=== PATIENT | female | born 1975 | race Caucasian/White ===

== ENCOUNTER 2021-08-11 19:44 | Emergency (ER) | payer OTHER ==
[2021-08-11 19:53] VITALS: TEMP 98
[2021-08-11] MEDS ORDERED: SODIUM CHLORIDE 0.9% 500 ML 500 ML IV STA (19:54)
--- NOTE | 2021-08-11 20:01 | ED ---
URI HPI - General Source: patient, RN notes reviewed, old records reviewed Mode of arrival: ambulatory Limitations: no limitations - History of Present Illness MD Complaint: cough, other (Shortness of breath) -: days(s) (10) Consistency: constant Improves With: nothing Associated Symptoms: rhinorrhea, cough, shortness of breath, other (Tachycardia) <Iam Lin - Last Filed: 08/11/21 23:13> - General Source: patient, RN notes reviewed, old records reviewed Mode of arrival: ambulatory Limitations: no limitations - History of Present Illness MD Complaint: cough, other -: days(s) Consistency: constant Improves With: nothing Associated Symptoms: rhinorrhea, cough, shortness of breath, other <Lisa Sandoval - Last Filed: 08/12/21 03:54> - General Chief Complaint: Upper Respiratory Infection Stated Complaint: Pneumonia Time Seen by Provider: 08/11/21 19:52 - History of Present Illness Initial Comments: This is a well-appearing 46-year-old female, evaluated in triage, who presents to the emergency room in no respiratory distress with complaints of 10 days of runny nose, cough and shortness of breath She was at urgent care and they recommended she come to the emergency room for elevated heart rate and oxygen sa turation 93%. She did take coronavirus test that was negative. She has been vaccinated. (Iam Lin) Patient evaluated in the examination room and noted to have difficulty catching her breath. She is also noted to have difficulty controlling her cough. States that sleeping has been very difficult, as whenever she tries to lay down she begins to cough. Denies any fevers, chills, sore throat, palpitations, abdominal pain, nausea, vomiting, diarrhea, back pain, or headaches. (Lisa Sandoval) - Related Data Previous Rx's Medication Instructions Recorded Albuterol Sulfate [Albuterol 1 puff PO Q4-6H #8.5 gm 08/12/21 Sulfate Hfa] Benzonatate [Tessalon Perles] 100 mg PO TID PRN #20 capsule 08/12/21 Codeine Phosphate/Guaifenesin 5 ml PO Q6H 3 Days #60 ml 08/12/21 [Codeine Phosphate/Guaifenesin 10-100 mg/5 ml] Doxycycline [Vibramycin] 100 mg PO BID 5 Days #10 capsule 08/12/21 Allergies Allergy/AdvReac Type Severity Reaction Status Date / Time No Known Allergies Allergy Verified 08/11/21 19:51 Review of Systems ROS Other: All systems not noted in ROS Statement are negative. <Iam Lin - Last Filed: 08/11/21 23:13> ROS Other: All systems not noted in ROS Statement are negative. <Lisa Sandoval - Last Filed: 08/12/21 03:54> ROS Statement: Those systems with pertinent positive or pertinent negative responses have been documented in the HPI. Past Medical History Past Medical History: No Reported History History of Any Multi-Drug Resistant Organisms: None Reported Past Surgical History: Cholecystectomy, Orthopedic Surgery Past Psychological History: No Psychological Hx Reported Smoking Status: Never smoker Past Alcohol Use History: None Reported Past Drug Use History: None Reported <Iam Lin - Last Filed: 08/11/21 23:13> General Exam Limitations: no limitations General appearance: alert Head exam: Present: atraumatic Neck exam: Absent: tenderness, meningismus Respiratory exam: Absent: respiratory distress, accessory muscle use Cardiovascular Exam: Present: tachycardia Neurological exam: Present: alert, oriented X3, normal gait Psychiatric exam: Present: normal affect, normal mood Skin exam: Present: normal color. Absent: cyanosis, diaphoretic <aIm Lin - Last Filed: 08/11/21 23:13> Limitations: no limitations General appearance: alert Head exam: Present: atraumatic Neck exam: Present: normal inspection. Absent: tenderness, meningismus, lymphadenopathy Respiratory exam: Present: rhonchi (In all four lobes, improved with coughing.). Absent: respiratory distress, wheezes, rales, stridor, accessory muscle use Cardiovascular Exam: Present: normal rhythm, tachycardia, normal heart sounds. Absent: systolic murmur, diastolic murmur, rubs, gallop, clicks Neurological exam: Present: alert, oriented X3, CN II-XII intact Psychiatric exam: Present: normal affect, normal mood Skin exam: Present: warm, dry, intact, normal color. Absent: rash <Lisa Sandoval - Last Filed: 08/12/21 03:54> Course Vital Signs 08/11/21 08/12/21 08/12/21 19:51 01:52 03:12 Temperature 98.0 F Pulse Rate 121 H 105 H 105 H Respiratory 22 20 18 Rate Blood Pressure 133/79 105/73 119/79 O2 Sat by Pulse 98 98 98 Oximetry Medical Decision Making - EKG Data Rate: tachycardia (Sinus tachycardia 114, LA interval 0.120, QRS 0.75, QTC 0.375 normal axis) <eddiIam - Last Filed: 08/11/21 23:13> - Lab Data Result diagrams: 08/12/21 01:38 08/12/21 01:38 - EKG Data Rate: tachycardia - Radiology Data Radiology results: report reviewed, image reviewed <Lisa Sandoval - Last Filed: 08/12/21 03:54> - Medical Decision Making This is a 46-year-old female who presents to the emergency department for cough, congestion, and shortness of breath. Lab work, EKG, and chest x-ray revealed no acute findings. Given that symptoms have been present for 10 days at this point, will treat her with a course of antibiotics. Rx for doxycycline sent to the pharmacy. Initial dose given in the emergency department, as pharmacies are currently closed. Because the patient is unable to sleep due to the coughing, codeine with guanfacine cough syrup sent to the pharmacy. Instructed her to only use at night as it is sedating. Again, because the pharmacies are closed, starter pack for Tylenol #3 provided. Given that it has codeine, it will help suppress the cough. Rx for Tessalon Perles and albuterol inhaler prescribed as well. Return precautions reviewed in depth, the patient is instructed to return to the emergency department with any new, worsening, or concerning symptoms. Patient verbalized understanding. This case was discussed in detail with the attending ED physician. Presentation, findings, and treatment plan discussed in detail as well. (Lisa Sandoval) - Lab Data Lab Results 08/12/21 08/12/21 08/12/21 Range/Units 01:38 01:38 01:38 WBC 11.9 H (3.8-10.6) k/uL RBC 4.35 (3.80-5.40) m/uL Hgb 13.2 (11.4-16.0) gm/dL Hct 38.9 (34.0-46.0) % MCV 89.4 (80.0-100.0) fL MCH 30.3 (25.0-35.0) pg MCHC 33.9 (31.0-37.0) g/dL RDW 12.8 (11.5-15.5) % Plt Count 157 (150-450) k/uL MPV 7.9 Neutrophils % 82 % Lymphocytes % 8 % Monocytes % 5 % Eosinophils % 3 % Basophils % 1 % Neutrophils # 9.8 H (1.3-7.7) k/uL Lymphocytes # 1.0 (1.0-4.8) k/uL Monocytes # 0.5 (0-1.0) k/uL Eosinophils # 0.4 (0-0.7) k/uL Basophils # 0.1 (0-0.2) k/uL PT 10.7 (9.0-12.0) sec INR 1.0 (<1.2) APTT 26.4 (22.0-30.0) sec D-Dimer 0.42 (<0.60) mg/L FEU Sodium 136 L (137-145) mmol/L Potassium 3.2 L (3.5-5.1) mmol/L Chloride 107 (98-107) mmol/L Carbon Dioxide 22 (22-30) mmol/L Anion Gap 7 mmol/L BUN 3 L (7-17) mg/dL Creatinine 0.60 (0.52-1.04) mg/dL Est GFR (CKD-EPI)AfAm >90 (>60 ml/min/1.73 sqM) Est GFR (CKD-EPI)NonAf >90 (>60 ml/min/1.73 sqM) Glucose 107 H (74-99) mg/dL Plasma Lactic Acid Paoc (0.7-2.0) mmol/L Calcium 8.7 (8.4-10.2) mg/dL Magnesium 1.7 (1.6-2.3) mg/dL Total Bilirubin 0.8 (0.2-1.3) mg/dL AST 23 (14-36) U/L ALT 16 (4-34) U/L Alkaline Phosphatase 108 (38-126) U/L Troponin I (0.000-0.034) ng/mL Total Protein 6.6 (6.3-8.2) g/dL Albumin 3.9 (3.5-5.0) g/dL 08/12/21 08/12/21 Range/Units 01:38 01:38 WBC (3.8-10.6) k/uL RBC (3.80-5.40) m/uL Hgb (11.4-16.0) gm/dL Hct (34.0-46.0) % MCV (80.0-100.0) fL MCH (25.0-35.0) pg MCHC (31.0-37.0) g/dL RDW (11.5-15.5) % Plt Count (150-450) k/uL MPV Neutrophils % % Lymphocytes % % Monocytes % % Eosinophils % % Basophils % % Neutrophils # (1.3-7.7) k/uL Lymphocytes # (1.0-4.8) k/uL Monocytes # (0-1.0) k/uL Eosinophils # (0-0.7) k/uL Basophils # (0-0.2) k/uL PT (9.0-12.0) sec INR (<1.2) APTT (22.0-30.0) sec D-Dimer (<0.60) mg/L FEU Sodium (137-145) mmol/L Potassium (3.5-5.1) mmol/L Chloride (98-107) mmol/L Carbon Dioxide (22-30) mmol/L Anion Gap mmol/L BUN (7-17) mg/dL Creatinine (0.52-1.04) mg/dL Est GFR (CKD-EPI)AfAm (>60 ml/min/1.73 sqM) Est GFR (CKD-EPI)NonAf (>60 ml/min/1.73 sqM) Glucose (74-99) mg/dL Plasma Lactic Acid Paco 1.2 (0.7-2.0) mmol/L Calcium (8.4-10.2) mg/dL Magnesium (1.6-2.3) mg/dL Total Bilirubin (0.2-1.3) mg/dL AST (14-36) U/L ALT (4-34) U/L Alkaline Phosphatase (38-126) U/L Troponin I <0.012 (0.000-0.034) ng/mL Total Protein (6.3-8.2) g/dL Albumin (3.5-5.0) g/dL Disposition <eddiIam - Last Filed: 08/11/21 23:13> Is patient prescribed a controlled substance at d/c from ED?: Yes When asked, does pt state using other controlled substances?: No If prescribed controlled substance>3 days was MAPS reviewed?: Prescribed <3 Days <Lisa Sandoval - Last Filed: 08/12/21 03:54> Clinical Impression: Bronchitis Disposition: HOME SELF-CARE Instructions (If sedation given, give patient instructions): Acute Bronchitis (ED) Additional Instructions: Return to the emergency department with any new, worsening, or concerning symptoms. Use the cough syrup at night until you know how it affects you, as it may be sedating. Take the antibiotic as prescribed for 5 days. Use the inhaler as needed for shortness of breath. Prescriptions: Albuterol Sulfate [Albuterol Sulfate Hfa] 1 puff PO Q4-6H #8.5 gm Codeine Phosphate/Guaifenesin [Codeine Phosphate/Guaifenesin 10-100 mg/5 ml] 5 ml PO Q6H 3 Days #60 ml Benzonatate [Tessalon Perles] 100 mg PO TID PRN #20 capsule PRN Reason: Cough Doxycycline [Vibramycin] 100 mg PO BID 5 Days #10 capsule Referrals: None,Stated [Primary Care Provider] - 1-2 days
--- NOTE | 2021-08-11 20:35 | XR ---
EXAMINATION TYPE: XR chest 2V DATE OF EXAM: 08/11/2021 COMPARISON: NONE HISTORY: Short of breath TECHNIQUE: 2 view FINDINGS: Heart is normal. Lungs are clear. Diaphragm is normal. Bony thorax is intact. IMPRESSION: Normal chest.
[2021-08-12 01:55] VITALS: PULSE 105
[2021-08-12 01:57] LABS: Basophils # (A) 0.1 k/uL (0-0.2); Basophils % (A) 1 %; Eosinophils # (A) 0.4 k/uL (0-0.7); Eosinophils % (A) 3 %; HCT 38.9 % (34.0-46.0); HGB 13.2 gm/dL (11.4-16.0); Lymphocytes % (A) 8 %; MCH 30.3 pg (25.0-35.0); MCHC 33.9 g/dL (31.0-37.0); MCV 89.4 fL (80.0-100.0); Mean Platelet Volume 7.9; Monocytes # (A) 0.5 k/uL (0-1.0); Monocytes % (A) 5 %; Neutrophils # (A) 9.8 k/uL (1.3-7.7); Neutrophils % (A) 82 %; Platelet Count 157 k/uL (150-450); RBC 4.35 m/uL (3.80-5.40); RDW 12.8 % (11.5-15.5); WBC 11.9 k/uL (3.8-10.6)
[2021-08-12 02:15] LABS: ALT 16 U/L (4-34); AST 23 U/L (14-36); African American GFR (CKD) >90 (>60 ml/min/1.73 sqM); Albumin 3.9 g/dL (3.5-5.0); Alkaline Phosphatase 108 U/L (38-126); Anion Gap 7 mmol/L; Blood Urea Nitrogen 3 mg/dL (7-17); Calcium 8.7 mg/dL (8.4-10.2); Carbon Dioxide 22 mmol/L (22-30); Chloride 107 mmol/L (98-107); Glucose 107 mg/dL (74-99); Magnesium 1.7 mg/dL (1.6-2.3); Non-African American GFR(CKD) >90 (>60 ml/min/1.73 sqM); Potassium 3.2 mmol/L (3.5-5.1); Sodium 136 mmol/L (137-145); Total Bilirubin 0.8 mg/dL (0.2-1.3); Total Protein 6.6 g/dL (6.3-8.2)
[2021-08-12 02:23] LABS: Partial Thromboplastin Time 26.4 sec (22.0-30.0); Prothrombin Time 10.7 sec (9.0-12.0)
[2021-08-12] MEDS ORDERED: ACET/COD 300 MG/30 MG STARTER PACK 6 TAB BTL PO STA (02:35)
[2021-08-12] MEDS ORDERED: BENZONATATE 100 MG CAP PO STA (02:36)
[2021-08-12] MEDS ORDERED: DOXYCYCLINE 100 MG CAP PO STA (02:44)
[2021-08-12 03:13] VITALS: BP 119/79; RESP 18
== END 2021-08-12 03:13 | disposition home or self-care (01) ==
LOC: EC 19:44
DX: J20.9 Acute bronchitis, unspecified (principal)
CPT/HCPCS: 36415; 71046; 80053; 83605; 83735; 84484; 85025; 85379; 85610; 85730; 93005; 99285

== ENCOUNTER 2024-09-05 14:51 | Emergency (ER) | payer OTHER ==
[2024-09-05 14:55] VITALS: RESP 16; TEMP 97.6
--- NOTE | 2024-09-05 15:58 | ED ---
General Adult HPI - General Chief complaint: Extremity Injury, Lower Stated complaint: R knee pain Time Seen by Provider: 09/05/24 15:25 Source: patient, RN notes reviewed, old records reviewed Mode of arrival: ambulatory Limitations: no limitations - History of Present Illness Initial comments: 49-year-old female presents emergency department complaining of right knee pain. Patient has a history of multiple meniscus repairs of the right knee. States she was climbing a ladder a few days ago when she hyperextended the knee and felt a pull and a pop sensation. States she has been having pain with full flexion of the right knee since. Denies any sensory deficits. States she occasionally gets paresthesias in her right toes. 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 Still able to bear weight. Has been using crutches as needed. Is from [place] of town and does not have an gas plant specialist follow-up with here. Presents for further evaluation at this time. - Related Data Previous Rx's Medication Instructions Recorded Albuterol Sulfate [Albuterol 1 puff PO Q4-6H #8.5 gm 08/12/21 Sulfate Hfa] Benzonatate [Tessalon Perles] 100 mg PO TID PRN #20 capsule 08/12/21 Codeine Phosphate/Guaifenesin 5 ml PO Q6H 3 Days #60 ml 08/12/21 [Codeine Phosphate/Guaifenesin 10-100 mg/5 ml] Doxycycline [Vibramycin] 100 mg PO BID 5 Days #10 capsule 08/12/21 Allergies Allergy/AdvReac Type Severity Reaction Status Date / Time No Known Allergies Allergy Verified 09/05/24 14:56 Review of Systems ROS Statement: Those systems with pertinent positive or pertinent negative responses have been documented in the HPI. Review of Systems: CONST: Denies fever EYES: Denies blurry vision ENT: Denies nasal congestion C/V: Denies Chest pain RESP: Denies shortness of breath GI: Denies abdominal pain : Denies dysuria SKIN: Denies rash. MSK: Endorses right knee. NEURO: Denies headache ROS Other: All systems not noted in ROS Statement are negative. Past Medical History Past Medical History: No Reported History History of Any Multi-Drug Resistant Organisms: None Reported Past Surgical History: Cholecystectomy, Orthopedic Surgery Past Psychological History: No Psychological Hx Reported Smoking Status: Never smoker Past Alcohol Use History: None Reported Past Drug Use History: None Reported General Exam - General Exam Comments Initial Comments: General: Appears in mild distress secondary to right knee pain. HEAD: Normal with no signs of head trauma. EYES: EOMI. ENT: Hearing grossly intact. RESPIRATORY: No respiratory distress. C/V: Regular rate and rhythm. ABD: Abdomen is nondistended. EXT: Complains of right knee pain. No obvious deformity. Pain with full flexion of the right knee. Pain with valgus stress on the right knee with flexion. Neurovascular intact throughout the right lower extremity. Able to hold the right lower extremity in full extension against gravity. SKIN: No rashes or lesions observed on exposed skin. NEURO: Alert and oriented. Limitations: no limitations Course Vital Signs 09/05/24 09/05/24 14:52 17:12 Temperature 97.6 F Pulse Rate 111 H 78 Respiratory 16 16 Rate Blood Pressure 113/69 127/86 O2 Sat by Pulse 98 100 Oximetry Medical Decision Making - Medical Decision Making Was pt. sent in by a medical professional or institution (Dr. PA, BORING MACHINE OPERATOR, urgent care, hospital, or group home...) When possible be specific @ -No Did you speak to anyone other than the patient for history (EMS, parent, family, police, friend...)? What history was obtained from this source @ -No Did you review nursing and triage notes (agree or disagree)? Why? @ -I reviewed and agree with nursing and triage notes Were old charts reviewed (outside hosp., previous admission, EMS record, old EKG, old radiological studies, urgent care reports/EKG's, group home records)? Report findings @ -No old charts were reviewed Differential Diagnosis (chest pain, altered mental status, abdominal pain women, abdominal pain men, vaginal bleeding, weakness, fever, dyspnea, syncope, headache, dizziness, GI bleed, back pain, seizure, CVA, palpatations, mental health, musculoskeletal)? @ -Right knee sprain, right knee strain, right knee fracture, ligament injury, meniscus injury. This list is not all-inclusive. EKG interpreted by me (3pts min.). @ -None done X-rays interpreted by me (1pt min.). @ -X-ray shows degenerative spurring in the right knee. No obvious acute injury. CT interpreted by me (1pt min.). @ -None done U/S interpreted by me (1pt. min.). @ -None done What testing was considered but not performed or refused? (CT, X-rays, U/S, labs)? Why? @ -None What meds were considered but not given or refused? Why? @ -None Did you discuss the management of the patient with other professionals (professionals i.e. DrSuzanne, PA, BORING MACHINE OPERATOR, lab, RT, psych nurse, social media campaign manager, fireman, teacher, armored vehicle officer, showcase trimmer)? Give summary @ -No Was smoking cessation discussed for >3mins.? @ -No Was critical care preformed (if so, how long)? @ -No Were there social determinants of health that impacted care today? How? (Homelessness, low income, unemployed, alcoholism, drug addiction, transportation, low edu. Level, literacy, decrease access to med. care, residential, rehab)? @ -No Was there de-escalation of care discussed even if they declined (Discuss DNR or withdrawal of care, Hospice)? DNR status @ -No What co-morbidities impacted this encounter? (DM, HTN, Smoking, COPD, CAD, Cancer, CVA, ARF, Chemo, Hep., AIDS, mental health diagnosis, sleep apnea, morbid obesity)? @ -None Was patient admitted / discharged? Hospital course, mention meds given and route, prescriptions, significant lab abnormalities, going to OR and other pertinent info. @ -Presents with right knee pain with history of multiple meniscus repairs. Has recently moved to the area. Does not have orthopedic follow-up. I am concerned for likely ligamentous versus meniscus injury of the right lower extremity however we will obtain an x-ray. She already has crutches and the plan is to give her a knee immobilizer. She was in agreement this plan. She declines analgesia medications. Accepted ice. Vitals are within acceptable limits. Neurovascular intact. Has been ambulating on the right leg for last 3 days since the injury. X-ray shows degenerative spurring in the right knee. No obvious acute injury. Discussed the results of the x-ray with the patient. She will be discharged home with a knee immobilizer to be used as needed. She does have knee braces at home and she will attempt to use if needed. Patient already has crutches.Patient does ask for follow-up to both orthopedic groups and I will provide her with follow-up to both orthopedic groups, both the on-call group and the secondary group with instructions to contact the on-call group, first [place]. Patient may require further testing. She was agreed with this plan. I instructed the patient to follow up with their PCP in the next 1-3 days. I explained that the patient should return to the emergency department if they experience any worsening symptoms. Strict return precautions were discussed with the patient. The patient expressed understanding of these instructions. I answered all questions that the patient had. The patient was discharged home in [good] condition with their prescriptions and follow up information. Undiagnosed new problem with uncertain prognosis? @ -No Drug Therapy requiring intensive monitoring for toxicity (Heparin, Nitro, Insulin, Cardizem)? @ -No Were any procedures done? @ -No Diagnosis/symptom? @ -Right knee sprain Acute, or Chronic, or Acute on Chronic? @ -Acute Uncomplicated (without systemic symptoms) or Complicated (systemic symptoms)? @ -Uncomplicated Side effects of treatment? @ -None Exacerbation, Progression, or Severe Exacerbation] @ -No Poses a threat to life or bodily function? @ -Unlikely at this time Disposition Clinical Impression: Right knee sprain Disposition: HOME SELF-CARE Condition: Good Instructions (If sedation given, give patient instructions): Knee Sprain (ED) Additional Instructions: Your diagnosis is knee sprain but I do suspect possible ligamentous or meniscus injury. You should follow-up with orthopedics for further testing. The on-call gas plant specialist is Dr. Glover and I recommend contacting him first. If for some reason you are unhappy with his care, as you requested I did provide you with the secondary orthopedic group, Dr. Delgado and to follow-up with. Return to the ER if any worsening symptoms. Is patient prescribed a controlled substance at d/c from ED?: No Referrals: None,Stated [Primary Care Provider] - 1-2 days Jeremy Glover MD [STAFF PHYSICIAN] - 1-2 days Ole Delgado DO [Doctor of Osteopathic Medicine] - 1-2 days Forms: Area PCPs Time of Disposition: 16:55
--- NOTE | 2024-09-05 16:12 | XR ---
EXAMINATION TYPE: XR knee complete RT DATE OF EXAM: 09/05/2024 4:00 PM COMPARISON: None CLINICAL INDICATION: Female, 49 years old with history of pain; PHH, pain TECHNIQUE: 3 views FINDINGS: Mild degenerative spurring in the medial compartment. No significant joint effusion. No acute fractur e, subluxation, dislocation seen. IMPRESSION: Mild degenerative spurring in the medial compartment. No acute osseous abnormalities seen. [facility], , 09/05/2024 4:10 PM
[2024-09-05] MEDS: ACET/COD 300 MG/30 MG STARTER PACK 6 TAB BTL PO STA (17:05)
[2024-09-05 17:14] VITALS: BP 127/86; PULSE 78
== END 2024-09-05 17:14 | disposition home or self-care (01) ==
LOC: EC 14:51
DX: S83.91XA Sprain of unspecified site of right knee, initial encounter (principal); X50.9XXA Other and unspecified overexertion or strenuous movements or postures, initial encounter
CPT/HCPCS: 73562; 99283; L1830